=== PATIENT | female | born 1980 | race Caucasian/White ===

== ENCOUNTER 2019-05-29 18:04 | Inpatient (IN) | payer SELFPAY ==
[~2019-05-29] VITALS: Ht 152.4 cm; Wt 84.5 kg
--- NOTE | 2019-05-29 18:26 | NUR ---
C/O NUMBNESS FROM LT SIDE OF UMBILICAL AREA TO LT TOES, RT TOES, BILAT FINGERTIPS. C/O WEAKNESS TO LT KNEE. STRENGTH EVEN BUT WEAK BILAT FEET AND HANDS. PULSES STRONG & REG. ABLE TO MOVE UPPER EXTREMETIES, INCLUDING FINGERS, W/OUT DIFFICULTY. SLOW MOVEMENT OF KNEES AND FEET. PT DENIES TRAUMA, SPINAL HX. HAS NOT GOTTEN MEDICAL CARE FOR SX. HAS TRIED TYELNOL W/OUT RELIEF - LAST DOSE ABOUT 2 DAYS AGO. PT'S SPOUSE IN ROOM.
--- NOTE | 2019-05-29 19:18 | NUR ---
AWAITING ERP EVALUATION.
--- NOTE | 2019-05-29 20:00 | NUR ---
DR DOWD NOW BS FOR EXAM
--- NOTE | 2019-05-29 20:24 | NUR ---
MRI SCREENING FORM COMPLETED W/ PT.
--- NOTE | 2019-05-29 20:30 | NUR ---
MRI SCREENING FORM FAXED TO MRI.
--- NOTE | 2019-05-29 20:42 | NUR ---
PIV INITIATED; LABS DRAWN FROM SITE. PT AWAITING MRI.
--- NOTE | 2019-05-29 20:49 | NUR ---
TO MRI PER VINCENT
[2019-05-29 20:53] LABS: BASOPHILS # (AUTO) 0.04 x10^3/uL (0-0.1); BASOPHILS % (AUTO) 0 % (0-1); EOSINOPHILS # (AUTO) 0.27 x10^3/uL (0-0.4); EOSINOPHILS % (AUTO) 3 % (1-7); LYMPHOCYTES # (AUTO) 2.39 x10^3/uL (1-3.4); LYMPHOCYTES % (AUTO) 25 % (22-44); MD NO; MEAN CORPUSCULAR HEMOGLOBIN 29.2 pg (27.0-34.8); MEAN CORPUSCULAR HGB CONC 33.3 g/dL (32.4-35.8); MEAN CORPUSCULAR VOLUME 87.7 fL (80-100); MEAN PLATELET VOLUME 8.5 fL (7.4-10.4); MONOCYTES % (AUTO) 5 % (2-9); NEUTROPHILS # (AUTO) 6.44 x10^3/uL (1.8-6.8); NEUTROPHILS % (AUTO) 67 % (42-75); PLATELET COUNT 326 x10^3/uL (130-400); RED BLOOD COUNT 4.45 x10^6/uL (3.82-5.3); RED CELL DISTRIBUTION WIDTH 14.5 % (9.6-15.2)
--- NOTE | 2019-05-29 20:59 | NUR ---
[employer], CALLED TO REPORT PT FEELING CLAUSTROPHOBIC; MRI EXPECTED TO TAKE APPROXIMATELY ONE HOUR. WILL NOTIFY DR DOWD
[2019-05-29 21:03] LABS: ALBUMIN 3.3 g/dL (3.4-5.0); ANION GAP 5 mmol/L (5-15); CALCIUM 8.5 mg/dL (8.5-10.1); CHLORIDE 107 mmol/L (98-107); CREATININE 0.69 mg/dL (0.55-1.02)
[2019-05-29] MEDS ORDERED: LORazepam 2 MG/ML, 1ML ONE (21:03)
--- NOTE | 2019-05-29 21:16 | NUR ---
ATIVAN 1MG IV GIVEN TO PT IN MRI
[2019-05-29] MEDS ORDERED: LORazepam 2 MG/ML, 1ML IVPush ONE (21:30)
--- NOTE | 2019-05-29 22:04 | NUR ---
PT REPORT TO DOROTEO AYALA. PT CARE TRANSFERRED. PT STILL IN MRI
[2019-05-29] MEDS ORDERED: GADOTERATE 10 MMOL/20 ML SYR ONE (22:48)
--- NOTE | 2019-05-29 23:23 | NUR ---
REPORT FROM LUCY. PT RETURNED FROM MRI AT THIS TIME
--- NOTE | 2019-05-30 00:04 | NUR ---
MD AT BEDSIDE DISCUSSING LP
[2019-05-30] MEDS ORDERED: LIDOCAINE-MPF 1%, 5ML ONE (00:18)
--- NOTE | 2019-05-30 00:41 | NUR ---
CONSENT SIGNED BY PT, THIS RN, AND .
--- NOTE | 2019-05-30 01:03 | NUR ---
AWAITING LP AT THIS TIME. PT AND SPOUSE DENY CURRENT NEEDS.
[2019-05-30] MEDS ORDERED: ACETAMINOPHEN 500 MG TABLET PO ONE (01:30)
[2019-05-30 01:39] LABS: GLUCOSE, CSF 57 mg/dL (40-80); TOTAL PROTEIN,CSF 99 mg/dL (15-45)
[2019-05-30] MEDS ORDERED: ACETAMINOPHEN 500 MG TABLET ONE (01:58)
--- NOTE | 2019-05-30 02:01 | NUR ---
pt medicated per mar. poc discussed. pt and spouse deny further needs at this time.
--- NOTE | 2019-05-30 03:02 | NUR ---
received report from DOROTEO Shannon. patient sleeping, respiration unlabored. VSS
--- NOTE | 2019-05-30 03:38 | NUR ---
Dr. Mcarthur at bedside. bed assigned. report given to DOROTEO Felipe.
[2019-05-30] MEDS ORDERED: ONDANSETRON 2MG/ML, 2ML IVPush PRN (04:30)
[2019-05-30] MEDS: ENOXAPARIN 40 MG/0.4 ML SQ SCH (04:30)
[2019-05-30 04:49] VITALS: BP 110/68
[2019-05-30 07:47] VITALS: BP 104/69
[2019-05-30] MEDS: IMMUNE GLOB (GAMUNEX) 10GM/100ML IV SCH (12:38)
[2019-05-30 17:35] VITALS: BP 133/68
[2019-05-30 19:16] VITALS: BP 149/74
[2019-05-31 01:39] VITALS: BP 141/67
[2019-05-31] MEDS: ENOXAPARIN 40 MG/0.4 ML SQ SCH (05:31)
[2019-05-31 05:46] LABS: ANION GAP 6 mmol/L (5-15); CHLORIDE 106 mmol/L (98-107)
[2019-05-31 05:50] LABS: ALANINE AMINOTRANSFERASE 25 U/L (12-78); ALKALINE PHOSPHATASE 99 U/L (45-117); BILIRUBIN,TOTAL 0.2 mg/dL (0.2-1.0); CALCIUM 8.3 mg/dL (8.5-10.1); CREATININE 0.63 mg/dL (0.55-1.02); TOTAL PROTEIN 8.5 g/dL (6.4-8.2)
[2019-05-31 06:08] LABS: BASOPHILS # (AUTO) 0.02 x10^3/uL (0-0.1); BASOPHILS % (AUTO) 0 % (0-1); EOSINOPHILS # (AUTO) 0.17 x10^3/uL (0-0.4); EOSINOPHILS % (AUTO) 3 % (1-7); LYMPHOCYTES # (AUTO) 1.75 x10^3/uL (1-3.4); LYMPHOCYTES % (AUTO) 27 % (22-44); MD NO; MEAN CORPUSCULAR HEMOGLOBIN 29.1 pg (27.0-34.8); MEAN CORPUSCULAR HGB CONC 33.2 g/dL (32.4-35.8); MEAN CORPUSCULAR VOLUME 87.7 fL (80-100); MEAN PLATELET VOLUME 8.5 fL (7.4-10.4); MONOCYTES # (AUTO) 0.33 x10^3/uL (0.2-0.8); MONOCYTES % (AUTO) 5 % (2-9); NEUTROPHILS # (AUTO) 4.22 x10^3/uL (1.8-6.8); NEUTROPHILS % (AUTO) 65 % (42-75); PLATELET COUNT 274 x10^3/uL (130-400); RED BLOOD COUNT 4.38 x10^6/uL (3.82-5.3); RED CELL DISTRIBUTION WIDTH 14.5 % (9.6-15.2)
[2019-05-31 06:20] VITALS: BP 103/65
[2019-05-31] MEDS: IMMUNE GLOB (GAMUNEX) 10GM/100ML IV SCH (10:10)
[2019-05-31 12:05] VITALS: BP 111/75
[2019-05-31] MEDS: ACETAMINOPHEN 325 MG TABLET PO PRN (17:42)
[2019-05-31 19:50] VITALS: BP 107/72
[2019-06-01 01:20] VITALS: BP 101/67
[2019-06-01] MEDS: ENOXAPARIN 40 MG/0.4 ML SQ SCH (05:49)
[2019-06-01 06:52] VITALS: BP 101/64
[2019-06-01 08:03] LABS: ANION GAP 7 mmol/L (5-15); CHLORIDE 108 mmol/L (98-107); CREATININE 0.67 mg/dL (0.55-1.02)
[2019-06-01] MEDS: IMMUNE GLOB (GAMUNEX) 10GM/100ML IV SCH (10:32)
[2019-06-01 12:10] VITALS: BP 106/69
[2019-06-01] MEDS: ACETAMINOPHEN 325 MG TABLET PO PRN ×2 (16:57→23:43)
[2019-06-01 19:26] VITALS: BP 101/63
[2019-06-02 00:14] VITALS: BP 96/56
[2019-06-02] MEDS: ENOXAPARIN 40 MG/0.4 ML SQ SCH (05:27)
[2019-06-02] MEDS: ACETAMINOPHEN 325 MG TABLET PO PRN ×3 (05:29→19:57)
[2019-06-02 06:55] VITALS: BP 97/63
[2019-06-02] MEDS: IMMUNE GLOB (GAMUNEX) 10GM/100ML IV SCH (09:27)
[2019-06-02] MEDS ORDERED: DIPHENHYDRAMINE 50 MG/ML, 1ML IVPush ONE (10:00)
[2019-06-02] MEDS ORDERED: ACETAMINOPHEN 500 MG TABLET PO ONE (10:30)
[2019-06-02 12:04] VITALS: BP 104/62
[2019-06-02 19:52] VITALS: BP 114/75
[2019-06-03 03:03] VITALS: BP 109/83
[2019-06-03] MEDS: ENOXAPARIN 40 MG/0.4 ML SQ SCH (05:39)
[2019-06-03 07:55] VITALS: BP 116/80
[2019-06-03] MEDS ORDERED: ACETAMINOPHEN 500 MG TABLET PO ONE (10:00)
[2019-06-03] MEDS ORDERED: DIPHENHYDRAMINE 50 MG/ML, 1ML IVPush ONE (10:00)
[2019-06-03] MEDS: IMMUNE GLOB (GAMUNEX) 10GM/100ML IV SCH (10:04)
[2019-06-03 13:33] VITALS: BP 109/73
== END 2019-06-03 17:59 | disposition home or self-care (01) | DRG 95 ==
LOC: ED 19:42 → EDIP 05-30 02:44 → 3N 05-30 04:38 → 4EST 05-30 11:12
PROVIDERS: ADMIT Family Medicine; ATTEND Internal Medicine
PROC: 009U3ZX Drainage of Spinal Canal, Percutaneous Approach, Diagnostic (ICD-10-PCS; principal; 2019-05-30)
PROC: 30233S1 Transfusion of Nonautologous Globulin into Peripheral Vein, Percutaneous Approach (ICD-10-PCS; 2019-05-30)
DX: G61.0 Guillain-Barre syndrome (principal); E87.1 Hypo-osmolality and hyponatremia; E66.9 Obesity, unspecified; Z68.36 Body mass index [BMI] 36.0-36.9, adult
CPT/HCPCS: 36415; 72157; 72158; 80048; 80053; 82040; 82607; 82784; 82945; 83516; 83735; 84100; 84157; 84443; 85025; 87070; 87205; 87252; 89051; 93005; 94150; 96374; 99285; G0378; J1561; J1650; A9575; J1200; J2060

== ENCOUNTER 2019-06-21 22:18 | Emergency (ER) | payer SELFPAY ==
[~2019-06-21] VITALS: Ht 152.4 cm; Wt 92.3 kg
[2019-06-21 23:27] LABS: BASOPHILS # (AUTO) 0.01 x10^3/uL (0-0.1); BASOPHILS % (AUTO) 0 % (0-1); EOSINOPHILS # (AUTO) 0.01 x10^3/uL (0-0.4); EOSINOPHILS % (AUTO) 0 % (1-7); LYMPHOCYTES # (AUTO) 0.64 x10^3/uL (1-3.4); LYMPHOCYTES % (AUTO) 18 % (22-44); MD NO; MEAN CORPUSCULAR HEMOGLOBIN 29.1 pg (27.0-34.8); MEAN CORPUSCULAR HGB CONC 33.5 g/dL (32.4-35.8); MEAN CORPUSCULAR VOLUME 86.8 fL (80-100); MONOCYTES # (AUTO) 0.32 x10^3/uL (0.2-0.8); MONOCYTES % (AUTO) 9 % (2-9); NEUTROPHILS # (AUTO) 2.69 x10^3/uL (1.8-6.8); NEUTROPHILS % (AUTO) 73 % (42-75); PLATELET COUNT 213 x10^3/uL (130-400); RED BLOOD COUNT 4.26 x10^6/uL (3.82-5.3); RED CELL DISTRIBUTION WIDTH 14.7 % (9.6-15.2)
[2019-06-21 23:30] LABS: HCT (SEDRATE) 36.9 % (34.6-47.8)
[2019-06-21 23:40] LABS: ALBUMIN 2.8 g/dL (3.4-5.0); ANION GAP 6 mmol/L (5-15); CALCIUM 7.8 mg/dL (8.5-10.1); CHLORIDE 108 mmol/L (98-107); CREATININE 0.59 mg/dL (0.55-1.02)
[2019-06-22] MEDS ORDERED: DIPHENHYDRAMINE 50 MG/ML, 1ML IV STA (00:53)
[2019-06-22] MEDS ORDERED: PROCHLORPERAZINE 5 MG/ML, 2ML IM STA (00:54)
[2019-06-22] MEDS ORDERED: DEXAMETHASONE 4 MG/ML, 1ML IVPush STA (00:56)
[2019-06-22] MEDS ORDERED: MAGNESIUM SULFATE/D5W 100 ML IV ONE (01:00)
[2019-06-22] MEDS ORDERED: PROCHLORPERAZINE 5 MG/ML, 2ML ONE (01:10)
[2019-06-22] MEDS ORDERED: DIPHENHYDRAMINE 50 MG/ML, 1ML ONE (01:10)
[2019-06-22] MEDS ORDERED: DEXAMETHASONE 4 MG/ML, 1ML ONE (01:10)
[2019-06-22] MEDS ORDERED: PROCHLORPERAZINE 5 MG/ML, 2ML IVPush ONE (01:30)
--- NOTE | 2019-06-22 02:11 | NUR ---
BREAK RN NOTE: MAG IV INFUSION WAS COMPLETED APPLIED BREANA HASKINS PER PT'S C/O COLD VSS UPDATED PT STATED " I AM VERY NAUSEOUS " WILL BE NOTIFIED
[2019-06-22 02:13] VITALS: BP 116/55
== END 2019-06-22 03:10 | disposition home or self-care (01) ==
LOC: ED 22:48
DX: G44.52 New daily persistent headache (NDPH) (principal)
CPT/HCPCS: 36415; 70450; 80048; 82040; 85025; 85651; 96365; 96375; 99284; J0780; J1100; J1200

== ENCOUNTER 2019-06-25 15:39 | Inpatient (IN) | payer OTHER ==
[~2019-06-25] VITALS: Ht 165.1 cm; Wt 94.1 kg
--- NOTE | 2019-06-25 17:07 | NUR ---
DIRECTOR OF MARKET RESEARCH: PT TO ROOM FROM LOBBY VIA W/C
[2019-06-25 17:12] LABS: BASOPHILS # (AUTO) 0.02 x10^3/uL (0-0.1); BASOPHILS % (AUTO) 1 % (0-1); EOSINOPHILS # (AUTO) 0.05 x10^3/uL (0-0.4); EOSINOPHILS % (AUTO) 1 % (1-7); LYMPHOCYTES # (AUTO) 1.22 x10^3/uL (1-3.4); LYMPHOCYTES % (AUTO) 30 % (22-44); MD NO; MEAN CORPUSCULAR HEMOGLOBIN 28.9 pg (27.0-34.8); MEAN CORPUSCULAR HGB CONC 33.5 g/dL (32.4-35.8); MEAN CORPUSCULAR VOLUME 86.4 fL (80-100); MEAN PLATELET VOLUME 8.4 fL (7.4-10.4); MONOCYTES # (AUTO) 0.31 x10^3/uL (0.2-0.8); MONOCYTES % (AUTO) 8 % (2-9); NEUTROPHILS # (AUTO) 2.48 x10^3/uL (1.8-6.8); NEUTROPHILS % (AUTO) 61 % (42-75); PLATELET COUNT 264 x10^3/uL (130-400); RED BLOOD COUNT 4.43 x10^6/uL (3.82-5.3); RED CELL DISTRIBUTION WIDTH 14.8 % (9.6-15.2)
[2019-06-25 17:23] LABS: ALANINE AMINOTRANSFERASE 54 U/L (12-78); ALBUMIN 2.9 g/dL (3.4-5.0); ANION GAP 8 mmol/L (5-15); CALCIUM 8.1 mg/dL (8.5-10.1); CHLORIDE 106 mmol/L (98-107); CREATININE 0.68 mg/dL (0.55-1.02)
[2019-06-25 17:27] LABS: ALKALINE PHOSPHATASE 90 U/L (45-117); BILIRUBIN,TOTAL 0.1 mg/dL (0.2-1.0)
[2019-06-25] MEDS ORDERED: PRED10TA PO (17:31)
[2019-06-25] MEDS ORDERED: ONDA8TAB9 PO (17:32)
[2019-06-25] MEDS ORDERED: ONDA8TAB16 SL (17:32)
--- NOTE | 2019-06-25 19:10 | NUR ---
REPORT RECEIVED FROM DOROTEO DELGADO. PLAN OF CARE DISCUSSED. 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 PATIENT EXPERIENCED INCREASED WEAKNESS ON LEFT SIDE OF BODY SINCE BEING DX. PATIENT TO GO TO MRI. A&OX4, VSS, NAD AT THIS TIME.
--- NOTE | 2019-06-25 19:28 | NUR ---
PIV PLACED, PATIENT TAKEN TO MRI AT THIS TIME
[2019-06-25 19:55] LABS: HCT (SEDRATE) 38.3 % (34.6-47.8)
--- NOTE | 2019-06-25 20:30 | NUR ---
PATIENT BACK FROM MRI, RESULTS PENDING. VSS, NAD AT THIS TIME, DENIES NEEDS
--- NOTE | 2019-06-25 22:10 | NUR ---
PATIENT RESTING ON GURROSAURA, VSS, NAD, DENIES NEEDS.
[2019-06-25] MEDS ORDERED: ACETAMINOPHEN 500 MG TABLET ONE (23:15)
[2019-06-25] MEDS ORDERED: KETOROLAC 30 MG/1 ML ONE (23:15)
[2019-06-25] MEDS ORDERED: DIPHENHYDRAMINE 25 MG CAPSULE ONE (23:15)
[2019-06-25] MEDS ORDERED: PROCHLORPERAZINE 5 MG/ML, 2ML ONE (23:15)
[2019-06-25] MEDS ORDERED: KETOROLAC 30 MG/1 ML IVPush ONE (23:30)
[2019-06-25] MEDS ORDERED: PROCHLORPERAZINE 5 MG/ML, 2ML IVPush ONE (23:30)
[2019-06-25] MEDS ORDERED: ACETAMINOPHEN 500 MG TABLET PO ONE (23:30)
[2019-06-25] MEDS ORDERED: DIPHENHYDRAMINE 25 MG CAPSULE PO ONE (23:30)
--- NOTE | 2019-06-25 23:33 | NUR ---
PATIENT MEDICATED PER EMAR, TOLERATED WELL. VSS, NAD, FAMILY IN ROOM
--- NOTE | 2019-06-25 23:50 | NUR ---
REPORT GIVEN TO DOROTEO ROUSE. PLAN OF CARE DISCUSSED
[2019-06-26] VITALS: BP 98/61
[2019-06-26] MEDS ORDERED: BISACODYL 10 MG SUPP PR PRN (00:30)
[2019-06-26] MEDS ORDERED: BUTALB/APAP/CAFFEINE 50MG/325MG/40MG PO PRN (00:30)
[2019-06-26] MEDS ORDERED: ONDANSETRON 2MG/ML, 2ML IVPush PRN (00:30)
[2019-06-26] MEDS ORDERED: POLYETHYLENE GLYCOL 17 GM PACKET PO PRN (00:30)
[2019-06-26] MEDS ORDERED: SUMATRIPTAN 25 MG TABLET PO PRN (00:30)
[2019-06-26 06:14] LABS: BASOPHILS # (AUTO) 0.02 x10^3/uL (0-0.1); BASOPHILS % (AUTO) 0 % (0-1); EOSINOPHILS % (AUTO) 0 % (1-7); LYMPHOCYTES # (AUTO) 1.36 x10^3/uL (1-3.4); LYMPHOCYTES % (AUTO) 36 % (22-44); MD NO; MEAN CORPUSCULAR HEMOGLOBIN 28.7 pg (27.0-34.8); MEAN CORPUSCULAR HGB CONC 33.4 g/dL (32.4-35.8); MEAN CORPUSCULAR VOLUME 85.9 fL (80-100); MEAN PLATELET VOLUME 8.1 fL (7.4-10.4); MONOCYTES # (AUTO) 0.31 x10^3/uL (0.2-0.8); MONOCYTES % (AUTO) 8 % (2-9); NEUTROPHILS # (AUTO) 2.14 x10^3/uL (1.8-6.8); NEUTROPHILS % (AUTO) 56 % (42-75); PLATELET COUNT 206 x10^3/uL (130-400); RED CELL DISTRIBUTION WIDTH 14.9 % (9.6-15.2)
[2019-06-26 06:16] LABS: ANION GAP 9 mmol/L (5-15); CHLORIDE 107 mmol/L (98-107)
[2019-06-26 07:58] VITALS: BP 112/74
[2019-06-26] MEDS ORDERED: IMMUNE GLOB (GAMUNEX) 10GM/100ML IV SCH (09:00)
[2019-06-26] MEDS ORDERED: IMMUNE GLOB IV SCH (09:00)
[2019-06-26] MEDS: SUMATRIPTAN 25 MG TABLET PO PRN ×2 (09:40→23:25)
[2019-06-26] MEDS: POTASSIUM CHLORIDE 20 MEQ TAB.ER.PRT PO SCH ×2 (09:40→18:20)
[2019-06-26] MEDS: SENNA/DOCUSATE TABLET PO SCH (09:40)
[2019-06-26] MEDS ORDERED: DIPHENHYDRAMINE 50 MG/ML, 1ML IVPush ONE (11:00)
[2019-06-26] MEDS: ACETAMINOPHEN 325 MG TABLET PO PRN ×2 (11:09→19:35)
[2019-06-26] MEDS: SODIUM CHLORIDE FLUSH 10ML SYR IVF SCH ×2 (11:27→19:36)
[2019-06-26 14:00] VITALS: BP 115/76
[2019-06-26 16:45] VITALS: BP 88/62
[2019-06-26] MEDS ORDERED: SODIUM CHLORIDE 0.9% 1,000 ML IV ONE (17:00)
[2019-06-26] MEDS: CEFTRIAXONE PMX 1GM/50ML 50 ML IV SCH (18:04)
[2019-06-26 19:17] VITALS: BP 118/76
[2019-06-27 01:53] VITALS: BP 128/84
[2019-06-27] MEDS: ACETAMINOPHEN 325 MG TABLET PO PRN (01:57)
[2019-06-27 05:32] LABS: CHLORIDE 108 mmol/L (98-107)
[2019-06-27 05:43] LABS: ANION GAP 9 mmol/L (5-15); CREATININE 0.47 mg/dL (0.55-1.02)
[2019-06-27] MEDS: CEFTRIAXONE PMX 1GM/50ML 50 ML IV SCH ×2 (06:01→19:42)
[2019-06-27 07:30] VITALS: BP 106/76
[2019-06-27] MEDS: SODIUM CHLORIDE FLUSH 10ML SYR IVF SCH ×2 (07:33→19:44)
[2019-06-27] MEDS: SENNA/DOCUSATE TABLET PO SCH (08:06)
[2019-06-27] MEDS ORDERED: IMMUNE GLOB IV SCH (09:00)
[2019-06-27] MEDS: POTASSIUM CHLORIDE 20 MEQ TAB.ER.PRT PO SCH ×2 (10:25→17:58)
[2019-06-27 12:43] VITALS: BP 124/90
[2019-06-27 21:09] VITALS: BP 115/77
[2019-06-28 01:43] VITALS: BP 120/76
[2019-06-28 05:10] LABS: BASOPHILS # (AUTO) 0.02 x10^3/uL (0-0.1); BASOPHILS % (AUTO) 0 % (0-1); EOSINOPHILS # (AUTO) 0.02 x10^3/uL (0-0.4); EOSINOPHILS % (AUTO) 0 % (1-7); LYMPHOCYTES # (AUTO) 2.35 x10^3/uL (1-3.4); LYMPHOCYTES % (AUTO) 37 % (22-44); MD NO; MEAN CORPUSCULAR HEMOGLOBIN 28.5 pg (27.0-34.8); MEAN CORPUSCULAR HGB CONC 33.2 g/dL (32.4-35.8); MEAN CORPUSCULAR VOLUME 85.9 fL (80-100); MEAN PLATELET VOLUME 8.5 fL (7.4-10.4); MONOCYTES # (AUTO) 0.37 x10^3/uL (0.2-0.8); MONOCYTES % (AUTO) 6 % (2-9); NEUTROPHILS # (AUTO) 3.61 x10^3/uL (1.8-6.8); NEUTROPHILS % (AUTO) 57 % (42-75); PLATELET COUNT 220 x10^3/uL (130-400); RED BLOOD COUNT 4.47 x10^6/uL (3.82-5.3); RED CELL DISTRIBUTION WIDTH 14.9 % (9.6-15.2)
[2019-06-28 05:21] LABS: ALBUMIN 2.5 g/dL (3.4-5.0); ANION GAP 7 mmol/L (5-15); CALCIUM 8.3 mg/dL (8.5-10.1); CHLORIDE 106 mmol/L (98-107)
[2019-06-28 05:22] LABS: CREATININE 0.57 mg/dL (0.55-1.02)
[2019-06-28 06:37] VITALS: BP 106/69
[2019-06-28] MEDS: CEFTRIAXONE PMX 1GM/50ML 50 ML IV SCH ×2 (07:37→19:16)
[2019-06-28] MEDS: SENNA/DOCUSATE TABLET PO SCH (07:37)
[2019-06-28] MEDS: POTASSIUM CHLORIDE 20 MEQ TAB.ER.PRT PO SCH ×2 (07:37→15:56)
[2019-06-28] MEDS: SODIUM CHLORIDE FLUSH 10ML SYR IVF SCH ×2 (07:38→20:46)
[2019-06-28 13:13] VITALS: BP 107/73
[2019-06-28 18:36] VITALS: BP 115/76
[2019-06-29 01:56] VITALS: BP 134/67
[2019-06-29 07:07] VITALS: BP 104/68
[2019-06-29] MEDS: POTASSIUM CHLORIDE 20 MEQ TAB.ER.PRT PO SCH ×2 (07:46→17:02)
[2019-06-29] MEDS: CEFTRIAXONE PMX 1GM/50ML 50 ML IV SCH ×2 (07:49→19:44)
[2019-06-29] MEDS: SENNA/DOCUSATE TABLET PO SCH (09:00)
[2019-06-29] MEDS: SODIUM CHLORIDE FLUSH 10ML SYR IVF SCH ×2 (09:00→19:47)
[2019-06-29 14:27] VITALS: BP 116/76
[2019-06-29 18:39] VITALS: BP 153/96
[2019-06-30 01:14] VITALS: BP 116/67
[2019-06-30 05:44] LABS: BASOPHILS # (AUTO) 0.04 x10^3/uL (0-0.1); BASOPHILS % (AUTO) 0 % (0-1); EOSINOPHILS % (AUTO) 0 % (1-7); LYMPHOCYTES # (AUTO) 1.55 x10^3/uL (1-3.4); LYMPHOCYTES % (AUTO) 14 % (22-44); MD NO; MEAN CORPUSCULAR HEMOGLOBIN 28.7 pg (27.0-34.8); MEAN CORPUSCULAR HGB CONC 32.9 g/dL (32.4-35.8); MEAN CORPUSCULAR VOLUME 87.1 fL (80-100); MEAN PLATELET VOLUME 8.7 fL (7.4-10.4); MONOCYTES # (AUTO) 0.26 x10^3/uL (0.2-0.8); MONOCYTES % (AUTO) 2 % (2-9); NEUTROPHILS # (AUTO) 8.92 x10^3/uL (1.8-6.8); NEUTROPHILS % (AUTO) 83 % (42-75); PLATELET COUNT 294 x10^3/uL (130-400); RED BLOOD COUNT 4.28 x10^6/uL (3.82-5.3); RED CELL DISTRIBUTION WIDTH 14.8 % (9.6-15.2)
[2019-06-30 05:50] LABS: ALBUMIN 2.6 g/dL (3.4-5.0); ANION GAP 8 mmol/L (5-15); CALCIUM 8.2 mg/dL (8.5-10.1); CHLORIDE 105 mmol/L (98-107); CREATININE 0.62 mg/dL (0.55-1.02)
[2019-06-30 07:05] VITALS: BP 113/61
[2019-06-30] MEDS: CEFTRIAXONE PMX 1GM/50ML 50 ML IV SCH (07:32)
[2019-06-30] MEDS: SENNA/DOCUSATE TABLET PO SCH (07:33)
[2019-06-30] MEDS: POTASSIUM CHLORIDE 20 MEQ TAB.ER.PRT PO SCH (07:33)
[2019-06-30] MEDS: SODIUM CHLORIDE FLUSH 10ML SYR IVF SCH (09:00)
== END 2019-06-30 12:30 | disposition home or self-care (01) | DRG 103 ==
LOC: ED 18:21 → EDIP 23:40 → 4NE 06-26 00:02
PROVIDERS: ADMIT Internal Medicine; ATTEND Family Medicine
DX: R51 Headache (principal); G61.0 Guillain-Barre syndrome; G61.81 Chronic inflammatory demyelinating polyneuritis; E87.6 Hypokalemia; E66.9 Obesity, unspecified; G70.00 Myasthenia gravis without (acute) exacerbation; H66.91 Otitis media, unspecified, right ear; R26.2 Difficulty in walking, not elsewhere classified; R13.10 Dysphagia, unspecified
CPT/HCPCS: 36415; 70553; 80048; 80053; 80069; 83520; 83735; 84703; 85025; 85651; 86140; 94150; 96374; 96375; 99285; G0378; J0696; J1561; J1885; J2405; J2930; J0780; J1200; J7030; Q0163

== ENCOUNTER 2019-07-04 14:56 | Emergency (ER) | payer OTHER ==
[~2019-07-04] VITALS: Ht 152.4 cm; Wt 90.8 kg
[~2019-07-04 14:56] MED LIST: ONDA8TAB16 SL; ONDA8TAB9 PO; PRED10TA PO
[2019-07-04 15:10] VITALS: BP 129/90
== END 2019-07-04 16:55 | disposition home or self-care (01) ==
LOC: ED 15:55
DX: B02.9 Zoster without complications (principal); M19.90 Unspecified osteoarthritis, unspecified site
CPT/HCPCS: 99283

== ENCOUNTER 2019-10-05 11:25 | Inpatient (IN) | payer SELFPAY ==
[~2019-10-05] VITALS: Ht 152.4 cm; Wt 96.4 kg
[~2019-10-05 11:25] MED LIST changes: +AZAT50TA9 PO
--- NOTE | 2019-10-05 11:43 | NUR ---
DX WITH GUILLAIN BARRE IN [facility] AND HAS BEEN HOSPITALIZED 2 TIMES FOR THE SAME THING. PT HAS BEEN GETTING STEROID INFUSIONS. NOW FEELING WEAK, N/V, DUNAWAY.
[2019-10-05] MEDS ORDERED: methylPREDNISolone SOD SUCC 125 MG/2 ML IVPush ONE (12:00)
[2019-10-05] MEDS ORDERED: SODIUM CHLORIDE FLUSH 10ML SYR IVF ONE (12:00)
[2019-10-05 12:16] LABS: BASOPHILS # (AUTO) 0.04 x10^3/uL (0-0.1); BASOPHILS % (AUTO) 0 % (0-1); EOSINOPHILS % (AUTO) 0 % (1-7); LYMPHOCYTES # (AUTO) 0.97 x10^3/uL (1-3.4); LYMPHOCYTES % (AUTO) 9 % (22-44); MD NO; MEAN CORPUSCULAR HEMOGLOBIN 29.9 pg (27.0-34.8); MEAN CORPUSCULAR HGB CONC 32.8 g/dL (32.4-35.8); MEAN PLATELET VOLUME 8.1 fL (7.4-10.4); MONOCYTES # (AUTO) 0.21 x10^3/uL (0.2-0.8); MONOCYTES % (AUTO) 2 % (2-9); NEUTROPHILS % (AUTO) 89 % (42-75); PLATELET COUNT 358 x10^3/uL (130-400); RED BLOOD COUNT 4.44 x10^6/uL (3.82-5.3); RED CELL DISTRIBUTION WIDTH 16.6 % (9.6-15.2)
[2019-10-05 12:22] LABS: ALBUMIN 3.5 g/dL (3.4-5.0); ANION GAP 9 mmol/L (5-15); C-REACTIVE PROTEIN, QUANT 0.14 mg/dL (0.02-0.49); CALCIUM 8.9 mg/dL (8.5-10.1); CHLORIDE 108 mmol/L (98-107)
[2019-10-05 12:24] LABS: ALANINE AMINOTRANSFERASE 22 U/L (12-78); ALKALINE PHOSPHATASE 84 U/L (45-117); BILIRUBIN,TOTAL 0.3 mg/dL (0.2-1.0); CREATININE 0.71 mg/dL (0.55-1.02)
--- NOTE | 2019-10-05 12:38 | NUR ---
BREAK Rn: PT CURRENTLY RESTING ON [employer]. NO ACUTE DISTRESS NOTED. SKIN PWD. RESP EVEN AND UNLABORED. PT AWARE THAT WE ARE WAITING FOR ADMISSION. PT DENIES PAIN/NEEDS AT THIS TIME. PT ON CONT BP AND SPO2 MONITORS. CALL LIGHT WITHIN REACH.
[2019-10-05 12:58] LABS: HCT (SEDRATE) 40.4 % (34.6-47.8)
[2019-10-05] MEDS ORDERED: ONDANSETRON ODT 4 MG PO PRN (13:30)
[2019-10-05] MEDS ORDERED: ONDANSETRON 2MG/ML, 2ML IVPush PRN (13:30)
[2019-10-05] MEDS ORDERED: DOCUSATE 100 MG CAPSULE PO PRN (13:30)
[2019-10-05 14:25] VITALS: BP 115/73
[2019-10-05] MEDS: ENOXAPARIN 40 MG/0.4 ML SQ SCH (14:38)
[2019-10-05 18:42] VITALS: BP 121/70
[2019-10-05] MEDS: ACETAMINOPHEN 325 MG TABLET PO PRN (20:57)
[2019-10-06 00:28] VITALS: BP 135/73
[2019-10-06 04:16] LABS: BASOPHILS # (AUTO) 0.02 x10^3/uL (0-0.1); BASOPHILS % (AUTO) 0 % (0-1); EOSINOPHILS % (AUTO) 0 % (1-7); LYMPHOCYTES # (AUTO) 0.89 x10^3/uL (1-3.4); LYMPHOCYTES % (AUTO) 7 % (22-44); MD NO; MEAN CORPUSCULAR HEMOGLOBIN 30.1 pg (27.0-34.8); MEAN CORPUSCULAR HGB CONC 33.1 g/dL (32.4-35.8); MEAN CORPUSCULAR VOLUME 90.8 fL (80-100); MEAN PLATELET VOLUME 8.4 fL (7.4-10.4); MONOCYTES # (AUTO) 0.13 x10^3/uL (0.2-0.8); MONOCYTES % (AUTO) 1 % (2-9); NEUTROPHILS # (AUTO) 11.56 x10^3/uL (1.8-6.8); NEUTROPHILS % (AUTO) 92 % (42-75); PLATELET COUNT 379 x10^3/uL (130-400); RED CELL DISTRIBUTION WIDTH 16.5 % (9.6-15.2)
[2019-10-06 04:25] LABS: ANION GAP 7 mmol/L (5-15); CALCIUM 9.2 mg/dL (8.5-10.1); CHLORIDE 106 mmol/L (98-107)
[2019-10-06 07:11] VITALS: BP 95/64
[2019-10-06] MEDS ORDERED: PANTOPRAZOLE 40 MG IV IVPush SCH (07:30)
[2019-10-06] MEDS: AZATHIOPRINE 50 MG TABLET PO SCH (07:45)
[2019-10-06] MEDS ORDERED: METHOCARBAMOL 500 MG TABLET PO PRN (11:30)
[2019-10-06] MEDS: ENOXAPARIN 40 MG/0.4 ML SQ SCH (13:35)
[2019-10-06 13:56] VITALS: BP 113/73
[2019-10-06 18:34] VITALS: BP 113/75
[2019-10-07 01:27] VITALS: BP 116/76
[2019-10-07] MEDS: PANTOPRAZOLE 40MG TABLET PO SCH (05:26)
[2019-10-07 07:36] VITALS: BP 124/90
[2019-10-07] MEDS: AZATHIOPRINE 50 MG TABLET PO SCH (09:20)
[2019-10-07 10:40] LABS: MEAN CORPUSCULAR HEMOGLOBIN 30.2 pg (27.0-34.8); MEAN CORPUSCULAR VOLUME 91.6 fL (80-100); MEAN PLATELET VOLUME 8.6 fL (7.4-10.4); PLATELET COUNT 366 x10^3/uL (130-400); RED BLOOD COUNT 4.41 x10^6/uL (3.82-5.3); RED CELL DISTRIBUTION WIDTH 16.8 % (9.6-15.2)
[2019-10-07 10:51] LABS: ANION GAP 11 mmol/L (5-15); CALCIUM 8.5 mg/dL (8.5-10.1); CHLORIDE 106 mmol/L (98-107)
[2019-10-07 10:55] LABS: BASOPHILS # (AUTO) 0.05 x10^3/uL (0-0.1); BASOPHILS % (AUTO) 0 % (0-1); EOSINOPHILS # (AUTO) 0.03 x10^3/uL (0-0.4); EOSINOPHILS % (AUTO) 0 % (1-7); LYMPHOCYTES # (AUTO) 1.21 x10^3/uL (1-3.4); LYMPHOCYTES % (AUTO) 8 % (22-44); MD SCAN; MONOCYTES # (AUTO) 0.44 x10^3/uL (0.2-0.8); MONOCYTES % (AUTO) 3 % (2-9); NEUTROPHILS # (AUTO) 13.81 x10^3/uL (1.8-6.8); NEUTROPHILS % (AUTO) 89 % (42-75)
[2019-10-07] MEDS ORDERED: DIPHENHYDRAMINE 12.5MG/5ML, 10ML UDC PO PRN (11:00)
[2019-10-07] MEDS: IMMUNE GLOBULIN 50 GM in VIAL 0 EACH IV SCH (11:33)
[2019-10-07 12:24] LABS: MICROSCOPIC INDICATED
[2019-10-07] MEDS: ENOXAPARIN 40 MG/0.4 ML SQ SCH (13:33)
[2019-10-07 14:37] VITALS: BP 125/86
[2019-10-07 21:19] VITALS: BP 123/80
[2019-10-08 01:39] VITALS: BP 145/87
[2019-10-08 05:02] LABS: BASOPHILS # (AUTO) 0.01 x10^3/uL (0-0.1); BASOPHILS % (AUTO) 0 % (0-1); EOSINOPHILS % (AUTO) 0 % (1-7); LYMPHOCYTES # (AUTO) 0.62 x10^3/uL (1-3.4); LYMPHOCYTES % (AUTO) 7 % (22-44); MD NO; MEAN CORPUSCULAR HEMOGLOBIN 29.9 pg (27.0-34.8); MEAN CORPUSCULAR HGB CONC 32.8 g/dL (32.4-35.8); MEAN CORPUSCULAR VOLUME 90.9 fL (80-100); MEAN PLATELET VOLUME 8.3 fL (7.4-10.4); MONOCYTES # (AUTO) 0.56 x10^3/uL (0.2-0.8); MONOCYTES % (AUTO) 6 % (2-9); NEUTROPHILS # (AUTO) 8.39 x10^3/uL (1.8-6.8); NEUTROPHILS % (AUTO) 88 % (42-75); PLATELET COUNT 315 x10^3/uL (130-400); RED BLOOD COUNT 4.27 x10^6/uL (3.82-5.3); RED CELL DISTRIBUTION WIDTH 16.7 % (9.6-15.2)
[2019-10-08] MEDS: PANTOPRAZOLE 40MG TABLET PO SCH (06:19)
[2019-10-08 07:25] VITALS: BP 128/84
[2019-10-08] MEDS: ACETAMINOPHEN 325 MG TABLET PO PRN (07:55)
[2019-10-08] MEDS: AZATHIOPRINE 50 MG TABLET PO SCH (07:55)
[2019-10-08] MEDS: DIPHENHYDRAMINE 50 MG/ML, 1ML IVPush PRN (10:30)
[2019-10-08] MEDS: IMMUNE GLOBULIN 50 GM in VIAL 0 EACH IV SCH (10:42)
[2019-10-08] MEDS: ENOXAPARIN 40 MG/0.4 ML SQ SCH (13:56)
[2019-10-08 14:56] VITALS: BP 122/80
[2019-10-08 18:33] VITALS: BP 112/76
[2019-10-09 00:20] VITALS: BP 108/72
[2019-10-09 07:13] VITALS: BP 133/84
[2019-10-09] MEDS: AZATHIOPRINE 50 MG TABLET PO SCH (08:21)
[2019-10-09] MEDS ORDERED: IBUPROFEN 600 MG TABLET PO PRN (10:00)
[2019-10-09] MEDS: DIPHENHYDRAMINE 50 MG/ML, 1ML IVPush PRN (10:44)
[2019-10-09] MEDS: IMMUNE GLOBULIN 50 GM in VIAL 0 EACH IV SCH (11:03)
[2019-10-09] MEDS: ENOXAPARIN 40 MG/0.4 ML SQ SCH (13:57)
[2019-10-09 14:56] VITALS: BP 111/78
[2019-10-09 18:57] VITALS: BP 107/70
[2019-10-10 00:30] VITALS: BP 114/76
[2019-10-10 08:30] VITALS: BP 111/77
[2019-10-10] MEDS: AZATHIOPRINE 50 MG TABLET PO SCH (09:50)
[2019-10-10] MEDS: IMMUNE GLOBULIN 50 GM in VIAL 0 EACH IV SCH (10:30)
[2019-10-10] MEDS: ENOXAPARIN 40 MG/0.4 ML SQ SCH (13:49)
[2019-10-10 13:54] VITALS: BP 137/83
[2019-10-10 19:18] VITALS: BP 102/72
[2019-10-10] MEDS: ACETAMINOPHEN 325 MG TABLET PO PRN (19:53)
[2019-10-11 00:22] VITALS: BP 112/70
[2019-10-11 08:11] VITALS: BP 104/76
[2019-10-11] MEDS: ACETAMINOPHEN 325 MG TABLET PO PRN (08:12)
[2019-10-11] MEDS: AZATHIOPRINE 50 MG TABLET PO SCH (08:13)
== END 2019-10-11 11:52 | disposition home or self-care (01) | DRG 74 ==
LOC: ED 12:06 → 3N 12:07 → UNDOADMIN 13:49 → DCLOUNGE 10-11 11:50
PROVIDERS: ADMIT Internal Medicine; ATTEND Internal Medicine
DX: G61.81 Chronic inflammatory demyelinating polyneuritis (principal); G61.0 Guillain-Barre syndrome; Z68.41 Body mass index [BMI] 40.0-44.9, adult; D72.829 Elevated white blood cell count, unspecified; T38.0X5A Adverse effect of glucocorticoids and synthetic analogues, initial encounter; F12.90 Cannabis use, unspecified, uncomplicated; G47.00 Insomnia, unspecified; K80.20 Calculus of gallbladder without cholecystitis without obstruction; M19.90 Unspecified osteoarthritis, unspecified site; M77.9 Enthesopathy, unspecified; R26.2 Difficulty in walking, not elsewhere classified; E66.9 Obesity, unspecified; Z72.89 Other problems related to lifestyle; Z90.49 Acquired absence of other specified parts of digestive tract
CPT/HCPCS: 36415; 80048; 80053; 81001; 83735; 85025; 85651; 86140; 87086; 87491; 87591; G0378; J1561; J1650; J2930; J7500; C9113; J1200

== ENCOUNTER 2019-12-14 08:01 | Inpatient (IN) | payer OTHER ==
[~2019-12-14] VITALS: Ht 152.4 cm; Wt 95.6 kg
--- NOTE | 2019-12-14 08:23 | NUR ---
FIRST CONTACT WITH PT. PT C/O BILATERAL ARMS/LEGS WEAKNESS/NUMBNESS D/T GUILLIAN BARRE FLARE UP. PT STATED"I'M GETTING WEAKER AND WEAKER. MY DR TOLD ME TO COME IN" PT'S AOX4. RESPS EVEN AND UNLABORED. BP/SPO2 MONITORS IN PLACE. CALL LIGHT WITHIN REACH. PA AT BEDSIDE EVALUATING AT THIS TIME.
[2019-12-14 08:48] LABS: ALBUMIN 3.2 g/dL (3.4-5.0); ANION GAP 8 mmol/L (5-15); CALCIUM 8.5 mg/dL (8.5-10.1); CHLORIDE 106 mmol/L (98-107); CREATININE 0.65 mg/dL (0.55-1.02)
--- NOTE | 2019-12-14 08:57 | NUR ---
PIV EST ON R HAND WITH NO COMPLICATIONS.
--- NOTE | 2019-12-14 09:08 | NUR ---
MEDICATION ORDERED FROM PHARMACY AT THIS TIME.
[2019-12-14 09:23] LABS: BASOPHILS # (AUTO) 0.04 x10^3/uL (0-0.1); BASOPHILS % (AUTO) 0 % (0-1); EOSINOPHILS % (AUTO) 0 % (1-7); LYMPHOCYTES # (AUTO) 0.97 x10^3/uL (1-3.4); LYMPHOCYTES % (AUTO) 8 % (22-44); MD NO; MEAN CORPUSCULAR HEMOGLOBIN 31.4 pg (27.0-34.8); MEAN CORPUSCULAR HGB CONC 33.6 g/dL (32.4-35.8); MEAN CORPUSCULAR VOLUME 93.5 fL (80-100); MEAN PLATELET VOLUME 8.4 fL (7.4-10.4); MONOCYTES # (AUTO) 0.47 x10^3/uL (0.2-0.8); MONOCYTES % (AUTO) 4 % (2-9); NEUTROPHILS # (AUTO) 10.92 x10^3/uL (1.8-6.8); NEUTROPHILS % (AUTO) 88 % (42-75); PLATELET COUNT 364 x10^3/uL (130-400); RED BLOOD COUNT 3.98 x10^6/uL (3.82-5.3); RED CELL DISTRIBUTION WIDTH 15.6 % (9.6-15.2)
--- NOTE | 2019-12-14 09:54 | NUR ---
REPORT GIVEN TO RAFY SADLER. ALL QUESTIONS ANSWERED.
[2019-12-14 10:00] VITALS: BP 140/83
[2019-12-14] MEDS ORDERED: ONDANSETRON ODT 4 MG PO PRN (10:00)
[2019-12-14] MEDS ORDERED: MELATONIN 5 MG TABLET PO PRN (10:00)
[2019-12-14] MEDS ORDERED: SODIUM CHLORIDE FLUSH 10ML SYR IVF ONE (10:00)
[2019-12-14] MEDS ORDERED: METHOCARBAMOL 500 MG TABLET PO PRN (10:00)
[2019-12-14] MEDS ORDERED: SODIUM CHLORIDE FLUSH 10ML SYR IVF PRN (10:00)
[2019-12-14] MEDS ORDERED: ONDANSETRON 2MG/ML, 2ML IVPush PRN (10:00)
[2019-12-14] MEDS ORDERED: TRAZODONE 50MG TABLET PO PRN (10:00)
[2019-12-14] MEDS ORDERED: METOCLOPRAMIDE 5 MG/ML, 2ML IVPush PRN (10:00)
[2019-12-14] MEDS ORDERED: POLYETHYLENE GLYCOL 17 GM PACKET PO PRN (10:00)
[2019-12-14] MEDS ORDERED: BISACODYL 10 MG SUPP PR PRN (10:00)
[2019-12-14] MEDS ORDERED: DIPHENHYDRAMINE 50 MG/ML, 1ML IVPush PRN (11:00)
[2019-12-14] MEDS ORDERED: AZATHIOPRINE 50 MG TABLET PO SCH (11:00)
[2019-12-14] MEDS: ENOXAPARIN 30 MG/0.3 ML SQ SCH ×2 (11:08→21:42)
[2019-12-14] MEDS: IMMUNE GLOBULIN IV SCH (11:28)
[2019-12-14 13:58] VITALS: BP 114/74
[2019-12-14 19:33] VITALS: BP 114/70
[2019-12-15 00:44] VITALS: BP 111/67
[2019-12-15 05:56] LABS: BASOPHILS # (AUTO) 0.01 x10^3/uL (0-0.1); BASOPHILS % (AUTO) 0 % (0-1); EOSINOPHILS # (AUTO) 0.02 x10^3/uL (0-0.4); EOSINOPHILS % (AUTO) 0 % (1-7); LYMPHOCYTES # (AUTO) 2.29 x10^3/uL (1-3.4); LYMPHOCYTES % (AUTO) 34 % (22-44); MD NO; MEAN CORPUSCULAR HEMOGLOBIN 30.7 pg (27.0-34.8); MEAN CORPUSCULAR HGB CONC 32.5 g/dL (32.4-35.8); MEAN CORPUSCULAR VOLUME 94.5 fL (80-100); MEAN PLATELET VOLUME 7.6 fL (7.4-10.4); MONOCYTES # (AUTO) 0.36 x10^3/uL (0.2-0.8); MONOCYTES % (AUTO) 6 % (2-9); NEUTROPHILS # (AUTO) 3.98 x10^3/uL (1.8-6.8); NEUTROPHILS % (AUTO) 60 % (42-75); PLATELET COUNT 295 x10^3/uL (130-400); RED BLOOD COUNT 4.05 x10^6/uL (3.82-5.3); RED CELL DISTRIBUTION WIDTH 16.2 % (9.6-15.2)
[2019-12-15 07:16] VITALS: BP 115/64
[2019-12-15] MEDS: SENNA/DOCUSATE TABLET PO SCH (09:00)
[2019-12-15] MEDS ORDERED: AZATHIOPRINE 50 MG TABLET ONE (10:41)
[2019-12-15] MEDS: ENOXAPARIN 30 MG/0.3 ML SQ SCH ×2 (10:47→22:52)
[2019-12-15] MEDS ORDERED: AZATHIOPRINE 50 MG TABLET PO ONE (11:00)
[2019-12-15] MEDS: DIPHENHYDRAMINE 50 MG/ML, 1ML IVPush PRN (12:00)
[2019-12-15] MEDS: ACETAMINOPHEN 500 MG TABLET PO PRN (12:01)
[2019-12-15] MEDS: IMMUNE GLOBULIN IV SCH (12:05)
[2019-12-15 13:24] VITALS: BP 98/67
[2019-12-15] MEDS: AZATHIOPRINE 50 MG TABLET PO SCH (20:09)
[2019-12-15 20:10] VITALS: BP 110/69
[2019-12-16 01:05] VITALS: BP 100/51
[2019-12-16 07:51] VITALS: BP 101/68
[2019-12-16] MEDS: SENNA/DOCUSATE TABLET PO SCH (09:00)
[2019-12-16] MEDS: IMMUNE GLOBULIN IV SCH (11:27)
[2019-12-16] MEDS: ACETAMINOPHEN 500 MG TABLET PO PRN (11:32)
[2019-12-16] MEDS: DIPHENHYDRAMINE 50 MG/ML, 1ML IVPush PRN (11:32)
[2019-12-16] MEDS: ENOXAPARIN 30 MG/0.3 ML SQ SCH ×2 (11:33→22:09)
[2019-12-16 13:09] VITALS: BP 95/59
[2019-12-16] MEDS: AZATHIOPRINE 50 MG TABLET PO SCH ×2 (14:02→21:00)
[2019-12-16 18:18] VITALS: BP 103/59
[2019-12-17 03:03] VITALS: BP 98/63
[2019-12-17 07:20] VITALS: BP 100/59
[2019-12-17] MEDS: SENNA/DOCUSATE TABLET PO SCH (09:00)
[2019-12-17] MEDS: AZATHIOPRINE 50 MG TABLET PO SCH ×2 (09:00→21:00)
[2019-12-17] MEDS: IMMUNE GLOBULIN IV SCH (10:00)
[2019-12-17] MEDS: ENOXAPARIN 30 MG/0.3 ML SQ SCH ×2 (10:01→21:04)
[2019-12-17] MEDS: ACETAMINOPHEN 325 MG TABLET PO PRN (10:06)
[2019-12-17] MEDS: DIPHENHYDRAMINE 50 MG/ML, 1ML IVPush PRN (10:06)
[2019-12-17 13:38] VITALS: BP 106/64
[2019-12-17 20:19] VITALS: BP 105/64
[2019-12-18 01:55] VITALS: BP 117/67
[2019-12-18 07:20] VITALS: BP 109/75
[2019-12-18] MEDS: ACETAMINOPHEN 325 MG TABLET PO PRN (07:59)
[2019-12-18] MEDS: SENNA/DOCUSATE TABLET PO SCH (07:59)
[2019-12-18] MEDS: AZATHIOPRINE 50 MG TABLET PO SCH (08:02)
[2019-12-18] MEDS: ENOXAPARIN 30 MG/0.3 ML SQ SCH (10:00)
[2019-12-18 14:07] VITALS: BP 116/78
== END 2019-12-18 14:50 | disposition home or self-care (01) | DRG 74 ==
LOC: ED 08:39 → EDIP 09:02 → SUATTDRO 09:33 → 3N 10:07
PROVIDERS: ADMIT Internal Medicine; ATTEND Internal Medicine
DX: G61.81 Chronic inflammatory demyelinating polyneuritis (principal); G61.0 Guillain-Barre syndrome; K59.09 Other constipation; M19.90 Unspecified osteoarthritis, unspecified site; R73.9 Hyperglycemia, unspecified; Z90.49 Acquired absence of other specified parts of digestive tract
CPT/HCPCS: 36415; 80048; 82040; 83036; 85025; G0378; J1561; J1650; J7500; J1200

== ENCOUNTER 2020-02-13 14:57 | Inpatient (IN) | payer OTHER ==
[~2020-02-13] VITALS: Ht 152.4 cm; Wt 98.0 kg
[2020-02-13 16:14] LABS: BASOPHILS % (AUTO) 1 % (0-1); EOSINOPHILS % (AUTO) 1 % (1-7); LYMPHOCYTES % (AUTO) 23 % (22-44); MEAN CORPUSCULAR HEMOGLOBIN 32.2 pg (27.0-34.8); MEAN CORPUSCULAR HGB CONC 33.8 g/dL (32.4-35.8); MEAN PLATELET VOLUME 7.8 fL (7.4-10.4); MONOCYTES % (AUTO) 6 % (2-9); NEUTROPHILS % (AUTO) 69 % (42-75); PLATELET COUNT 368 x10^3/uL (130-400); RED BLOOD COUNT 4.27 x10^6/uL (3.82-5.3); RED CELL DISTRIBUTION WIDTH 15.8 % (9.6-15.2)
[2020-02-13 16:17] LABS: MD NO
[2020-02-13 16:23] LABS: ALBUMIN 3.9 g/dL (3.4-5.0); ANION GAP 7 mmol/L (5-15); CALCIUM 8.8 mg/dL (8.5-10.1); CHLORIDE 109 mmol/L (98-107)
[2020-02-13 16:29] LABS: C-REACTIVE PROTEIN, QUANT 1.07 mg/dL (0.02-0.49)
[2020-02-13 16:55] LABS: MICROSCOPIC INDICATED
[2020-02-13] MEDS ORDERED: IMMUNE GLOB (GAMUNEX) 10GM/100ML IV ONE (17:00)
[2020-02-13] MEDS ORDERED: IMMUNE GLOBULIN IV ONE (17:00)
[2020-02-13] MEDS ORDERED: ACETAMINOPHEN 500 MG TABLET PO ONE (17:00)
[2020-02-13 17:13] LABS: HCT (SEDRATE) 40.7 % (34.6-47.8)
[2020-02-13] MEDS ORDERED: ACETAMINOPHEN 325 MG TABLET PO PRN (17:30)
[2020-02-13] MEDS ORDERED: ONDANSETRON 2MG/ML, 2ML IVPush PRN (17:30)
[2020-02-13] MEDS ORDERED: ONDANSETRON ODT 4 MG PO PRN (17:30)
--- NOTE | 2020-02-13 17:34 | NUR ---
REPORT TO HERNAN SADLER FOR ROOM 460
[2020-02-13] MEDS ORDERED: ENOXAPARIN 40 MG/0.4 ML ONE (17:48)
[2020-02-13] MEDS ORDERED: ACETAMINOPHEN 500 MG TABLET ONE (17:48)
[2020-02-13] MEDS: ENOXAPARIN 40 MG/0.4 ML SQ SCH (17:51)
[2020-02-13] MEDS ORDERED: DIPHENHYDRAMINE 50 MG/ML, 1ML ONE (18:20)
[2020-02-13] MEDS: DIPHENHYDRAMINE 50 MG/ML, 1ML IVPush PRN (18:24)
--- NOTE | 2020-02-13 18:29 | NUR ---
pt placed on monitor tech. vss at this time. will continue to monitor. bilat bedrails up.
[2020-02-13 20:22] VITALS: BP 111/74
[2020-02-14 01:56] VITALS: BP 99/63
[2020-02-14 07:17] VITALS: BP 103/61
[2020-02-14] MEDS: DIPHENHYDRAMINE 50 MG/ML, 1ML IVPush PRN (10:34)
[2020-02-14] MEDS: IMMUNE GLOB (GAMUNEX) 10GM/100ML IV SCH (10:35)
[2020-02-14 10:45] VITALS: BP 119/82
[2020-02-14] MEDS: CEPHALEXIN 500 MG CAPSULE PO SCH ×2 (12:52→20:13)
[2020-02-14 13:24] VITALS: BP 113/77
[2020-02-14] MEDS: ENOXAPARIN 40 MG/0.4 ML SQ SCH (18:42)
[2020-02-14 20:20] VITALS: BP 121/82
[2020-02-15 01:58] VITALS: BP 105/69
[2020-02-15] MEDS: CEPHALEXIN 500 MG CAPSULE PO SCH ×4 (02:25→21:36)
[2020-02-15 08:25] VITALS: BP 101/67
[2020-02-15] MEDS: IMMUNE GLOB (GAMUNEX) 10GM/100ML IV SCH (12:26)
[2020-02-15] MEDS: DIPHENHYDRAMINE 50 MG/ML, 1ML IVPush PRN (12:29)
[2020-02-15 14:01] VITALS: BP 119/70
[2020-02-15] MEDS: ENOXAPARIN 40 MG/0.4 ML SQ SCH (18:44)
[2020-02-15 21:06] VITALS: BP 110/72
[2020-02-16 01:22] VITALS: BP 113/77
[2020-02-16] MEDS: CEPHALEXIN 500 MG CAPSULE PO SCH ×4 (03:57→22:08)
[2020-02-16 06:58] VITALS: BP 100/64
[2020-02-16] MEDS: IMMUNE GLOB (GAMUNEX) 10GM/100ML IV SCH (10:06)
[2020-02-16] MEDS: DIPHENHYDRAMINE 50 MG/ML, 1ML IVPush PRN (10:06)
[2020-02-16 13:39] VITALS: BP 110/70
[2020-02-16] MEDS: ENOXAPARIN 40 MG/0.4 ML SQ SCH (18:04)
[2020-02-16 21:06] VITALS: BP 111/74
[2020-02-17 02:15] VITALS: BP 102/67
[2020-02-17] MEDS: CEPHALEXIN 500 MG CAPSULE PO SCH ×3 (03:32→16:31)
[2020-02-17 09:03] VITALS: BP 138/79
[2020-02-17] MEDS: IMMUNE GLOB (GAMUNEX) 10GM/100ML IV SCH (09:57)
[2020-02-17] MEDS: DIPHENHYDRAMINE 50 MG/ML, 1ML IVPush PRN (10:04)
[2020-02-17 13:56] VITALS: BP 109/66
[2020-02-17] MEDS: ENOXAPARIN 40 MG/0.4 ML SQ SCH (16:41)
== END 2020-02-17 18:37 | disposition home or self-care (01) | DRG 74 ==
LOC: ED 15:54 → EDIP 16:39 → 4NE 19:00
PROVIDERS: ADMIT Internal Medicine; ATTEND Internal Medicine
DX: G61.81 Chronic inflammatory demyelinating polyneuritis (principal); N39.0 Urinary tract infection, site not specified; Z68.41 Body mass index [BMI] 40.0-44.9, adult; E66.9 Obesity, unspecified; J44.9 Chronic obstructive pulmonary disease, unspecified
CPT/HCPCS: 36415; 80048; 81001; 82040; 84703; 85025; 85651; 86140; 87086; 96365; 96366; 96372; 99285; G0378; J1561; J1650; J1200

== ENCOUNTER 2020-07-25 05:16 | Emergency (ER) | payer BC, OTHER ==
[~2020-07-25] VITALS: Ht 172.7 cm; Wt 97.5 kg
--- NOTE | 2020-07-25 05:33 | NUR ---
CC OF HIVES ON BILAT UPPER THIGHS AND ITCHING, ALSO ITCHING ON BUTTOCKS, NO HIVES NOTED ON BUTTOCK. NO DIFFICULTY BREATHING OR SWALLOWING. NO NEW FOODS. PT RECEIVES IV IG TREATMENTS FOR CIDP, LAST TREATMENT 2 WEEKS AGO.
[2020-07-25] MEDS ORDERED: FAMOTIDINE 20 MG TABLET ONE (05:45)
[2020-07-25] MEDS ORDERED: DIPHENHYDRAMINE 50 MG CAPSULE ONE (05:45)
[2020-07-25] MEDS ORDERED: DIPHENHYDRAMINE 25 MG CAPSULE PO ONE (06:00)
[2020-07-25] MEDS ORDERED: FAMOTIDINE 20 MG TABLET PO ONE (06:00)
[2020-07-25 06:49] VITALS: BP 149/70
== END 2020-07-25 06:51 | disposition home or self-care (01) ==
LOC: ED 05:58
DX: L50.0 Allergic urticaria (principal)
CPT/HCPCS: 99284; J7512; Q0163

== ENCOUNTER 2020-07-26 05:02 | Emergency (ER) | payer OTHER ==
[~2020-07-26] VITALS: Ht 154.9 cm; Wt 100.0 kg
[2020-07-26] MEDS ORDERED: FAMOTIDINE 20 MG TABLET PO ONE (05:30)
[2020-07-26] MEDS ORDERED: DIPHENHYDRAMINE 50 MG/ML, 1ML IM ONE (05:30)
--- NOTE | 2020-07-26 05:30 | NUR ---
Woke up with itchy, rash on bilat arms, chest and back. Pt with frequent visits to pcp and ER for same. PCP gave rx for hydralazine at 5pm yesterday. Seen yesterday in ER for same.
[2020-07-26 05:46] LABS: BASOPHILS % (AUTO) 0 % (0-1); EOSINOPHILS % (AUTO) 7 % (1-7); LYMPHOCYTES % (AUTO) 15 % (22-44); MEAN CORPUSCULAR HEMOGLOBIN 29.4 pg (27.0-34.8); MEAN PLATELET VOLUME 7.8 fL (7.4-10.4); MONOCYTES % (AUTO) 6 % (2-9); NEUTROPHILS % (AUTO) 71 % (42-75); PLATELET COUNT 264 x10^3/uL (130-400); RED BLOOD COUNT 4.14 x10^6/uL (3.82-5.3); RED CELL DISTRIBUTION WIDTH 14.5 % (9.6-15.2)
[2020-07-26 05:47] LABS: MD NO
[2020-07-26 05:58] LABS: ALANINE AMINOTRANSFERASE 24 U/L (12-78); ALBUMIN 2.7 g/dL (3.4-5.0); ANION GAP 7 mmol/L (5-15); CALCIUM 8.1 mg/dL (8.5-10.1); CHLORIDE 113 mmol/L (98-107); CREATININE 0.68 mg/dL (0.55-1.02)
[2020-07-26 06:02] LABS: ALKALINE PHOSPHATASE 119 U/L (45-117); BILIRUBIN,TOTAL 0.1 mg/dL (0.2-1.0); TOTAL PROTEIN 7.7 g/dL (6.4-8.2)
--- NOTE | 2020-07-26 06:09 | NUR ---
WOKE UP YESTERDAY WITH ITCHY RASH AND CAME TO ER YESTERDAY AT 0500. WAS PRESCRIBED TWO MEDICATIONS THAT NEVER TOOK BECAUSE HAD AN APPOINTMENT WITH HER PRIMARY CARE PHYSICAN AT 1300 AND SHE TOLD HER NOT TO TAKE THE MEDICATIONS BUT TAKE HYDROXYIZINE INSTEAD. PT WOKE UP THIS AM 0430 AND A RASH THAT WAS SIGNIFICANTLY WORSE AND ITCHING ALL OVER THE BODY.
[2020-07-26] MEDS ORDERED: FAMOTIDINE 20 MG TABLET ONE (06:14)
[2020-07-26] MEDS ORDERED: DIPHENHYDRAMINE 50 MG/ML, 1ML ONE (06:14)
[2020-07-26 06:26] VITALS: BP 135/72
--- NOTE | 2020-07-26 06:53 | NUR ---
Patient given discharge instructions and they have confirmed that they understand the instructions. Patient ambulatory with steady gait. No questions at time of discharge.
== END 2020-07-26 06:54 | disposition home or self-care (01) ==
LOC: ED 05:36
DX: R21 Rash and other nonspecific skin eruption (principal); Z90.49 Acquired absence of other specified parts of digestive tract
CPT/HCPCS: 36415; 80053; 84703; 85025; 96372; 99283; J1200; J7512

== ENCOUNTER 2020-12-05 11:46 | Inpatient (IN) | payer OTHER ==
[~2020-12-05] VITALS: Ht 152.4 cm; Wt 99.5 kg
--- NOTE | 2020-12-05 11:53 | NUR ---
PT BEING WHEELED BACK TO ROOM VIA WC BY [employer].
--- NOTE | 2020-12-05 12:08 | NUR ---
pt w dx cidp neurologist dr rodríguez here at [facility]. gets monthly ivig infusions via port but there was an insurance/scheduling issue and she was due 2 weeks ago and is having worse symptoms of leg weakness and fell today. R side/ribs feel sore but did not head head/suffer serious injury. vss. no sob/diff breathing. never intubated. call sunshine. at bedside. as
[2020-12-05 12:52] LABS: BASOPHILS % (AUTO) 1 % (0-1); EOSINOPHILS % (AUTO) 1 % (1-7); LYMPHOCYTES % (AUTO) 18 % (22-44); MEAN CORPUSCULAR HEMOGLOBIN 29.9 pg (27.0-34.8); MEAN CORPUSCULAR HGB CONC 33.9 g/dL (32.4-35.8); MEAN PLATELET VOLUME 7.8 fL (7.4-10.4); MONOCYTES % (AUTO) 4 % (2-9); NEUTROPHILS % (AUTO) 75 % (42-75); PLATELET COUNT 320 x10^3/uL (130-400); RED BLOOD COUNT 4.45 x10^6/uL (3.82-5.3); RED CELL DISTRIBUTION WIDTH 14.8 % (9.6-15.2)
--- NOTE | 2020-12-05 12:56 | NUR ---
labwas at bedside, vss. as
[2020-12-05 13:03] LABS: ALBUMIN 3.2 g/dL (3.4-5.0); ANION GAP 7 mmol/L (5-15); CALCIUM 8.8 mg/dL (8.5-10.1); CHLORIDE 104 mmol/L (98-107); CREATININE 0.56 mg/dL (0.55-1.02)
--- NOTE | 2020-12-05 13:03 | NUR ---
report to rishi ellsworth as
--- NOTE | 2020-12-05 13:41 | NUR ---
NEURO DOC CALLED ON COMPUTER. SPOKE WITH PT. PT TO BE ADMITTED
[2020-12-05] MEDS ORDERED: ONDANSETRON 2MG/ML, 2ML IVPush PRN (15:30)
[2020-12-05] MEDS ORDERED: DOCUSATE 100 MG CAPSULE PO PRN (15:30)
[2020-12-05] MEDS ORDERED: PROMETHAZINE 25 MG/ML, 1ML IM PRN (15:30)
[2020-12-05] MEDS ORDERED: BISACODYL 10 MG SUPP PR PRN (15:30)
[2020-12-05] MEDS ORDERED: ONDANSETRON ODT 4 MG PO PRN (15:30)
[2020-12-05] MEDS ORDERED: POLYETHYLENE GLYCOL 17 GM PACKET PO PRN (15:30)
[2020-12-05] MEDS ORDERED: OXYcodone IR 5MG TABLET PO PRN (15:30)
[2020-12-05] MEDS ORDERED: ENOXAPARIN 40 MG/0.4 ML SQ SCH (15:48)
[2020-12-05] MEDS ORDERED: hydrALAzine 20 MG/ML, 1ML IVPush PRN (15:48)
[2020-12-05] MEDS ORDERED: DIPHENHYDRAMINE 50 MG/ML, 1ML IVPush ONE (16:00)
[2020-12-05] MEDS ORDERED: IMMUNE GLOBULIN IV SCH (16:00)
--- NOTE | 2020-12-05 16:01 | NUR ---
CALL TO DR KING REGARDING BENADRYL DOSAGE. PER PT, SHE TAKES 150 MG BENADRYL AT BEGINNING OF HER IVIG MEDICATION. DR KING DISCUSSED DOSE WITH PHARMACY AND PHARMACY IS NOT "COMFORTABLE" WITH 150 MG OF [address]. PER DR KING, START WITH 50MG BENADRYL AND GIVEN ADDITIONAL 50 MG IF PT DEVELOPS ANY SYMPTOMS. PT RECLINED IN BED, RESPIRATIONS EVEN AND UNLABORED ON RA. POWER PORT ACCESSED AND DRESSED. REQUEST SENT TO PHARMACY FOR IVIG MEDICATION.
[2020-12-05] MEDS ORDERED: ENOXAPARIN 40 MG/0.4 ML ONE (16:07)
--- NOTE | 2020-12-05 16:26 | NUR ---
DISCUSSION WITH DESTINY PHARMACIST REGARDING PT'S IVIG MEDICATION FOR CLARITY ON ADMINISTRATION DIRECTIONS.
[2020-12-05] MEDS ORDERED: DIPHENHYDRAMINE 50 MG/ML, 1ML ONE ×2 (16:36)
--- NOTE | 2020-12-05 17:02 | NUR ---
FOLLOW UP CALL FROM PHARMACISTDESTINY. PER DESTINY SADLER TO FOLLOW 0.5ML/KG/HR INSTRUCTIONS AND INCREASE 0.5ML/KG/HR IF PT TOLERATING WELL UP TO LIMITS SPECIFIED IN EMAR.
--- NOTE | 2020-12-05 17:15 | NUR ---
FIRST ATTEMPT TO CALL REPORT.
[2020-12-05 18:19] VITALS: BP 130/86
[2020-12-05] MEDS: SODIUM CHLORIDE 0.9% 1,000 ML IV SCH (18:38)
[2020-12-05 21:29] LABS: MICROSCOPIC NOT IND
[2020-12-06] MEDS: ACETAMINOPHEN 325 MG TABLET PO PRN (00:32)
[2020-12-06 01:07] VITALS: BP 118/68
[2020-12-06] MEDS: SODIUM CHLORIDE 0.9% 1,000 ML IV SCH (04:56)
[2020-12-06 05:51] LABS: BASOPHILS % (AUTO) 0 % (0-1); EOSINOPHILS % (AUTO) 2 % (1-7); LYMPHOCYTES % (AUTO) 23 % (22-44); MEAN CORPUSCULAR HEMOGLOBIN 29.9 pg (27.0-34.8); MEAN CORPUSCULAR HGB CONC 33.6 g/dL (32.4-35.8); MONOCYTES % (AUTO) 5 % (2-9); NEUTROPHILS % (AUTO) 70 % (42-75); PLATELET COUNT 258 x10^3/uL (130-400); RED BLOOD COUNT 3.98 x10^6/uL (3.82-5.3); RED CELL DISTRIBUTION WIDTH 14.5 % (9.6-15.2)
[2020-12-06 06:03] LABS: ALANINE AMINOTRANSFERASE 33 U/L (12-78); ALBUMIN 2.4 g/dL (3.4-5.0); ANION GAP 8 mmol/L (5-15); CALCIUM 7.8 mg/dL (8.5-10.1); CHLORIDE 107 mmol/L (98-107); CREATININE 0.46 mg/dL (0.55-1.02)
[2020-12-06 06:12] LABS: ALKALINE PHOSPHATASE 89 U/L (45-117); BILIRUBIN,TOTAL 0.4 mg/dL (0.2-1.0); CHOL/HDL RATIO 7.6; CHOLESTEROL, TOTAL 198 mg/dL (140-239); HDL CHOL % 13 % (28-40); HDL CHOLESTEROL (DIRECT) 26 mg/dL (40-60); LDL CHOLESTEROL,CALCULATED 151 mg/dL (54-169); LDL/HDL RATIO 5.8 (0.5-3.0); TOTAL PROTEIN 8.5 g/dL (6.4-8.2); TRIGLYCERIDES 104 mg/dL (50-200); VLDL CHOLESTEROL 21 mg/dL (0-25)
[2020-12-06 06:55] VITALS: BP 108/68
[2020-12-06 12:48] VITALS: BP 137/87
[2020-12-06] MEDS: DIPHENHYDRAMINE 50 MG/ML, 1ML IVPush SCH (12:56)
[2020-12-06] MEDS: IMMUNE GLOBULIN IV SCH (13:06)
[2020-12-06] MEDS: ENOXAPARIN 40 MG/0.4 ML SQ SCH (16:31)
[2020-12-06 17:33] VITALS: BP 142/83
[2020-12-06 18:24] VITALS: BP 138/70
[2020-12-07 01:42] VITALS: BP 97/62
[2020-12-07] MEDS: ACETAMINOPHEN 325 MG TABLET PO PRN ×2 (02:29→17:14)
[2020-12-07 08:13] VITALS: BP 122/83
[2020-12-07] MEDS: ENOXAPARIN 40 MG/0.4 ML SQ SCH (09:06)
[2020-12-07 12:20] VITALS: BP 123/89
[2020-12-07] MEDS: DIPHENHYDRAMINE 50 MG/ML, 1ML IVPush SCH (13:07)
[2020-12-07] MEDS: IMMUNE GLOBULIN IV SCH (13:13)
== END 2020-12-07 18:50 | disposition home or self-care (01) | DRG 95 ==
LOC: ED 11:55 → EDIP 14:38 → 4WST 17:48
PROVIDERS: ADMIT Internal Medicine; ATTEND Internal Medicine
DX: G61.0 Guillain-Barre syndrome (principal); G61.81 Chronic inflammatory demyelinating polyneuritis; M19.90 Unspecified osteoarthritis, unspecified site; Z91.81 History of falling; Z90.49 Acquired absence of other specified parts of digestive tract
CPT/HCPCS: 36415; 80048; 80053; 80061; 81003; 82040; 83036; 83735; 84100; 84443; 85025; 93005; 96372; 96374; 96375; G0378; J1561; J1650; J1200; J7030